=== PATIENT | male | born 1960 | race Caucasian/White ===

== ENCOUNTER → 2020-01-10 | Outpatient (CLI) | payer OTHER | END | disposition home or self-care (01) | LOC: LAB 07:40 → LAB SHORT 07:40 | DX: R19.7 Diarrhea, unspecified (principal) | CPT/HCPCS: 87177; 87209 ==

== ENCOUNTER → 2022-07-21 | Outpatient (CLI) | payer OTHER ==
[2022-07-21 19:05] LABS: Alanine Aminotransfer (ALT/SGP 47 U/L (12-78); Albumin, Blood 3.8 g/dL (3.4-5.0); Albumin/Globulin Ratio 1.2 (0.8-1.8); Alk Phos 65 U/L (50-136); Anion Gap 5 mmol/L (6-16); Aspartate Aminotrans (AST/SGOT 39 U/L (12-37); Bilirubin, Total 0.4 mg/dL (0.1-1.0); Blood Urea Nitrogen 13 mg/dL (8-24); Bun/Creatinine Ratio 20.2 (12.0-20.0); CHOL/HDL RATIO 3.5; CO2, Blood 27 mmol/L (21-32); Calcium, Blood 9.3 mg/dL (8.5-10.1); Chloride, Blood 106 mmol/L (98-108); Cholesterol 201 mg/dL (50-200); Creatinine, Blood 0.64 mg/dL (0.60-1.20); Globulin, Blood 3.2 g/dL (2.2-4.0); Glomerular Filtration Rate 109 (60-); Glucose, Blood 126 mg/dL (70-99); HDL Cholesterol 58 mg/dL (>39); Low Density Lipoprotein Chol 116 mg/dL (0-110); Potassium, Blood 4.4 mmol/L (3.5-5.5); Sodium, Blood 138 mmol/L (136-145); Triglycerides 134 mg/dL (30-160); Very Low Density Lipoprot Chol 26 mg/dL (6-32)
== END | disposition home or self-care (01) ==
LOC: LAB SHORT 17:15 → LAB 17:15
PROVIDERS: Family Medicine
DX: E11.9 Type 2 diabetes mellitus without complications (principal)
CPT/HCPCS: 80053; 80061

== ENCOUNTER 2024-11-23 19:31 | Emergency (ER) | payer OTHER ==
[~2024-11-23] VITALS: Ht 177.8 cm; Wt 163.3 kg
[2024-11-23] MEDS ORDERED: Lactated Ringer's 1,000 ML IV ONE (19:40)
[2024-11-23] MEDS ORDERED: NS 1,000 ML IV SCH ×2 (19:40→21:30)
[2024-11-23 19:48] LABS: BASOPHILS ABSOLUTE AUTO 0.03 K/mm3 (0.00-0.23); BASOPHILS PERCENT AUTO 0 % (0-2); EOSINOPHILS ABSOLUTE AUTO 0.01 K/mm3 (0.00-0.68); EOSINOPHILS PERCENT AUTO 0 % (0-6); Hematocrit 38.5 % (37.0-53.0); Hemoglobin 13.4 g/dL (13.5-17.5); IMMATURE GRAN ABSOLUTE AUTO 0.05 K/mm3 (0.00-0.10); IMMATURE GRAN PERCENT AUTO 1 % (0-1); LYMPHOCYTES ABSOLUTE AUTO 0.52 K/mm3 (0.84-5.20); LYMPHOCYTES PERCENT AUTO 6 % (21-46); MONOCYTES ABSOLUTE AUTO 0.56 K/mm3 (0.16-1.47); MONOCYTES PERCENT AUTO 6 % (4-13); Mean Corpuscular HGB 28.9 pg (26.0-34.0); Mean Corpuscular HGB Conc 34.8 g/dL (31.5-36.5); Mean Corpuscular Volume 83 fL (80-100); Mean Platelet Volume 8.6 fL (9.1-12.4); NEUTROPHILS ABSOLUTE AUTO 7.96 K/mm3 (1.96-9.15); NEUTROPHILS PERCENT AUTO 87 % (41-73); Platelet Count 225 K/mm3 (150-400); RDW Coefficient Variation 13.9 % (11.7-14.2); RDW Standard Deviation 42.2 fL (35.1-46.3); Red Blood Cell Count 4.63 M/mm3 (4.30-5.90); White Blood Cell Count 9.13 K/mm3 (4.00-11.30)
[2024-11-23 19:51] LABS: Base Excess Venous 0.3 mmol/L; Bicarbonate Venous 25.4 mmol/L (24.0-30.0); PCO2 Venous 30.5 mmHg (38-42)
[2024-11-23 20:12] LABS: Magnesium, Blood 1.8 mg/dL (1.6-2.4)
[2024-11-23] MEDS ORDERED: Ketorolac Tromethamine 30mg Vial IV ONE (20:15)
[2024-11-23 20:20] LABS: Albumin, Blood 3.6 g/dL (3.4-5.0); Albumin/Globulin Ratio 1.1 (0.8-1.8); Beta-hydroxybutyrate 2.1 mg/dL (0.2-2.8); Bilirubin, Total 0.3 mg/dL (0.1-1.0); Bun/Creatinine Ratio 19.5 (12.0-20.0); Calcium, Blood 9.2 mg/dL (8.5-10.1); Creatinine, Blood 0.82 mg/dL (0.60-1.20); Globulin, Blood 3.3 g/dL (2.2-4.0); Potassium, Blood 3.8 mmol/L (3.5-5.5); Total Protein, Blood 6.9 g/dL (6.4-8.2)
[2024-11-23 20:29] LABS: Influenza A, PCR NEGATIVE (NEGATIVE); Influenza B, PCR NEGATIVE (NEGATIVE); Resp Syncytial Virus, PCR NEGATIVE (NEGATIVE); SARS-Cov-2 (COVID-19) PCR, MMC NEGATIVE (NEGATIVE)
[2024-11-23] MEDS ORDERED: Metoprolol Tartrate 1 MG/ML 5 ML VIAL IV ONE (21:20)
[2024-11-23] MEDS ORDERED: Insulin Regular 100 Unit/ML 1ML Dose IV ONE ×2 (21:30→23:00)
[2024-11-23] MEDS ORDERED: HYDROmorphone HCl/Pf 1MG SYR IV ONE (21:35)
[2024-11-23 22:07] LABS: Source, Urine Clean Catch
[2024-11-23 22:09] LABS: Bilirubin, Urine Neg (Neg); Blood, Urine Neg (Neg); Glucose Qualitative, Urine 3+ (Neg); Ketones, Urine 1+ (Neg); Leukocyte Esterase, Urine Neg (Neg); Nitrite, Urine Neg (Neg); Protein, Urine 2+ (Neg); Specific Gravity, Urine 1.015 (1.003-1.022); Urobilinogen, Urine NORM (Normal)
[2024-11-23] MEDS ORDERED: Acetaminophen 500 MG Tab PO ONE (22:10)
[2024-11-23 22:18] LABS: Appearance, Urine Clear (Clear); Color, Urine Yellow (P-Yellow)
[2024-11-23 22:19] LABS: Bacteria Few /hpf; Red Blood Cells, Urine 0-2 /hpf (0-2); Squamous Epithelial Cells Few /hpf (Few); White Blood Cells, Urine 0-2 /hpf (0-5)
[2024-11-23 23:31] VITALS: BP 113/63
== END 2024-11-23 23:31 | disposition home or self-care (01) ==
LOC: ER 19:31
PROVIDERS: Student in an Organized Health Care Education/Training Program
DX: E11.65 Type 2 diabetes mellitus with hyperglycemia (principal); E86.0 Dehydration; B34.9 Viral infection, unspecified; I10 Essential (primary) hypertension; Z88.5 Allergy status to narcotic agent; Z88.8 Allergy status to other drugs, medicaments and biological substances
CPT/HCPCS: 0241U; 71045; 80053; 81001; 82010; 82803; 82947; 83735; 83880; 84484; 85025; 93005; 93010; 96361; 96374; 96375; 99285-25; A9270; J1171; J1815; J1885; J7030

== ENCOUNTER 2025-02-05 14:55 | Emergency (ER) | payer OTHER ==
[~2025-02-05] VITALS: Ht 180.3 cm; Wt 124.7 kg
--- NOTE | 2025-02-05 15:27 | NUR ---
Pt. is awake in ED15 when this second helper comes to bedside. Pts. nurses completed his intake and stepped out. Pt. is known to this second helper from the community. Facilitate a review of the Pts. history leading to his coming to the ED. Listen with empathy and a calming presence. Pt. displays evidence of labored memory, and at times verbalized his frustration over it. Prayed with the Pt. Pt. displays evidence of having been comforted and verbalized gratitude for the spiritual care visit. This second helper got permiission to bring the Pts. spouse to bedside. Will remain available to the Pt. and spouse.
[2025-02-05 15:52] LABS: BASOPHILS ABSOLUTE AUTO 0.01 K/mm3 (0.00-0.23); BASOPHILS PERCENT AUTO 0 % (0-2); EOSINOPHILS ABSOLUTE AUTO 0.01 K/mm3 (0.00-0.68); EOSINOPHILS PERCENT AUTO 0 % (0-6); Hematocrit 36.2 % (37.0-53.0); Hemoglobin 12.3 g/dL (13.5-17.5); IMMATURE GRAN ABSOLUTE AUTO 0.05 K/mm3 (0.00-0.10); IMMATURE GRAN PERCENT AUTO 1 % (0-1); LYMPHOCYTES ABSOLUTE AUTO 0.77 K/mm3 (0.84-5.20); LYMPHOCYTES PERCENT AUTO 8 % (21-46); MONOCYTES ABSOLUTE AUTO 0.86 K/mm3 (0.16-1.47); MONOCYTES PERCENT AUTO 9 % (4-13); Mean Corpuscular Volume 79 fL (80-100); Mean Platelet Volume 8.3 fL (9.1-12.4); NEUTROPHILS PERCENT AUTO 82 % (41-73); Platelet Count 264 K/mm3 (150-400); RDW Coefficient Variation 13.7 % (11.7-14.2); RDW Standard Deviation 39.2 fL (35.1-46.3); Red Blood Cell Count 4.56 M/mm3 (4.30-5.90)
[2025-02-05] MEDS ORDERED: Acetaminophen 500 MG Tab PO ONE (16:05)
[2025-02-05 16:09] LABS: Albumin, Blood 3.2 g/dL (3.4-5.0); Albumin/Globulin Ratio 0.7 (0.8-1.8); Bilirubin, Total 0.6 mg/dL (0.1-1.0); Bun/Creatinine Ratio 20.8 (12.0-20.0); Creatinine, Blood 0.77 mg/dL (0.60-1.20); Globulin, Blood 4.4 g/dL (2.2-4.0); Potassium, Blood 3.8 mmol/L (3.5-5.5); Total Protein, Blood 7.6 g/dL (6.4-8.2)
[2025-02-05 16:47] LABS: Source, Urine Clean Catch
[2025-02-05] MEDS ORDERED: Lactated Ringer's 1,000 ML IV ONE (17:25)
[2025-02-05] MEDS ORDERED: CefTRIAXone Sodium 2,000 MG in NS 100 ML IV ONE (17:30)
[2025-02-05 17:36] LABS: Influenza A, PCR NEGATIVE (NEGATIVE); Influenza B, PCR NEGATIVE (NEGATIVE); Resp Syncytial Virus, PCR NEGATIVE (NEGATIVE); SARS-Cov-2 (COVID-19) PCR, MMC NEGATIVE (NEGATIVE)
--- NOTE | 2025-02-05 18:26 | NUR ---
Spiritual Care Follow Up Pt. isstill in ED15 and displays evidence of discomfort. Pt. verbalized that he still ahs a fever. Spouse is at bedside. Both verbalized gratitude for the spiritual care check in. WIll remain available to the family should the Pt. be admitted.
[2025-02-05 18:37] LABS: Bilirubin, Urine Neg (Neg); Blood, Urine 3+ (Neg); Color, Urine Yellow (P-Yellow); Glucose Qualitative, Urine Neg (Neg); Ketones, Urine Neg (Neg); Leukocyte Esterase, Urine 2+ (Neg); Nitrite, Urine Neg (Neg); Protein, Urine 3+ (Neg); Specific Gravity, Urine 1.015 (1.003-1.022); Urobilinogen, Urine NORM (Normal)
[2025-02-05] MEDS ORDERED: Gabapentin 300 MG Cap PO ONE (18:45)
[2025-02-05] MEDS ORDERED: Gabapentin 400 MG Cap PO ONE (19:15)
[2025-02-05 19:26] LABS: Appearance, Urine Hazy (Clear)
[2025-02-05 19:27] LABS: Bacteria Mod /hpf; Mucus Light (0-Heavy); Squamous Epithelial Cells Rare /hpf (Few)
[2025-02-05] MEDS ORDERED: CEFD300 PO (19:33)
[2025-02-05 19:46] VITALS: BP 158/77
== END 2025-02-05 19:46 | disposition home or self-care (01) ==
LOC: ER 14:55
PROVIDERS: Student in an Organized Health Care Education/Training Program
DX: N39.0 Urinary tract infection, site not specified (principal); R41.0 Disorientation, unspecified; I10 Essential (primary) hypertension; E11.9 Type 2 diabetes mellitus without complications; M10.9 Gout, unspecified; Z88.8 Allergy status to other drugs, medicaments and biological substances; Z88.5 Allergy status to narcotic agent; Z59.89 Other problems related to housing and economic circumstances
CPT/HCPCS: 0241U; 36415; 80053; 81001; 83605; 85025; 87040; 87077; 87086; 87186; 93005; 93010; 96365; 99285-25; A9270; J0696; J7120

== ENCOUNTER 2025-02-10 14:39 | Emergency (ER) | payer OTHER ==
[~2025-02-10] VITALS: Ht 177.8 cm; Wt 149.7 kg
[~2025-02-10 14:39] MED LIST: CEFD300 PO
[2025-02-10] MEDS ORDERED: CefTRIAXone Sodium 1,000 MG in NS 50 ML IV ONE (15:00)
[2025-02-10 15:31] LABS: BASOPHILS ABSOLUTE AUTO 0.03 K/mm3 (0.00-0.23); BASOPHILS PERCENT AUTO 1 % (0-2); EOSINOPHILS PERCENT AUTO 2 % (0-6); Hematocrit 34.2 % (37.0-53.0); Hemoglobin 11.1 g/dL (13.5-17.5); IMMATURE GRAN ABSOLUTE AUTO 0.07 K/mm3 (0.00-0.10); IMMATURE GRAN PERCENT AUTO 1 % (0-1); LYMPHOCYTES ABSOLUTE AUTO 0.88 K/mm3 (0.84-5.20); LYMPHOCYTES PERCENT AUTO 16 % (21-46); MONOCYTES ABSOLUTE AUTO 0.36 K/mm3 (0.16-1.47); MONOCYTES PERCENT AUTO 7 % (4-13); Mean Corpuscular HGB 26.4 pg (26.0-34.0); Mean Corpuscular HGB Conc 32.5 g/dL (31.5-36.5); Mean Corpuscular Volume 81 fL (80-100); Mean Platelet Volume 8.6 fL (9.1-12.4); NEUTROPHILS ABSOLUTE AUTO 4.02 K/mm3 (1.96-9.15); NEUTROPHILS PERCENT AUTO 74 % (41-73); Platelet Count 304 K/mm3 (150-400); RDW Coefficient Variation 13.7 % (11.7-14.2); RDW Standard Deviation 40.3 fL (35.1-46.3); White Blood Cell Count 5.46 K/mm3 (4.00-11.30)
[2025-02-10 15:52] LABS: Albumin, Blood 2.7 g/dL (3.4-5.0); Albumin/Globulin Ratio 0.6 (0.8-1.8); Bilirubin, Total 0.3 mg/dL (0.1-1.0); Bun/Creatinine Ratio 29.4 (12.0-20.0); Calcium, Blood 9.3 mg/dL (8.5-10.1); Creatinine, Blood 0.61 mg/dL (0.60-1.20); Globulin, Blood 4.2 g/dL (2.2-4.0); Potassium, Blood 3.8 mmol/L (3.5-5.5); Total Protein, Blood 6.9 g/dL (6.4-8.2)
[2025-02-10 16:28] LABS: Source, Urine Voided
[2025-02-10 16:30] LABS: Appearance, Urine Clear (Clear); Bilirubin, Urine Neg (Neg); Blood, Urine 1+ (Neg); Color, Urine Yellow (P-Yellow); Glucose Qualitative, Urine Neg (Neg); Ketones, Urine Neg (Neg); Leukocyte Esterase, Urine 1+ (Neg); Nitrite, Urine Neg (Neg); Protein, Urine 1+ (Neg); Urobilinogen, Urine NORM (Normal)
[2025-02-10 16:56] LABS: Bacteria Many /hpf; Squamous Epithelial Cells Rare /hpf (Few)
[2025-02-10] MEDS ORDERED: CefTRIAXone Sodium 1,000 MG in NS 100 ML IV ONE (18:50)
[2025-02-10 19:09] VITALS: BP 137/74
[2025-02-10] MEDS ORDERED: CEFD300 PO (19:28)
[2025-02-10] MEDS ORDERED: Flomax0.4 MG PO (19:28)
== END 2025-02-10 19:30 | disposition home or self-care (01) ==
LOC: ER 14:39
PROVIDERS: Emergency Medicine
DX: N13.6 Pyonephrosis (principal); I10 Essential (primary) hypertension; E11.9 Type 2 diabetes mellitus without complications; K76.0 Fatty (change of) liver, not elsewhere classified; Z88.5 Allergy status to narcotic agent; Z88.8 Allergy status to other drugs, medicaments and biological substances
CPT/HCPCS: 74177; 80053; 81001; 83690; 85025; 87086; 93005; 93010; 96365; 99283-25; J0696; Q9967

== ENCOUNTER → 2025-09-01 | Outpatient (CLI) | payer OTHER ==
[~2025-09-01] MED LIST changes: +Flomax0.4 MG PO
[2025-09-01 09:12] LABS: Source, Urine Clean Catch
[2025-09-01 14:39] LABS: Bilirubin, Urine Neg (Neg); Color, Urine Yellow (P-Yellow); Glucose Qualitative, Urine Neg (Neg); Ketones, Urine Neg (Neg); Leukocyte Esterase, Urine 2+ (Neg); Protein, Urine 2+ (Neg); Specific Gravity, Urine 1.025 (1.003-1.022); Urobilinogen, Urine NORM (Normal)
[2025-09-01 16:04] LABS: Red Blood Cells, Urine TNTC /hpf (0-2)
[2025-09-01 17:29] LABS: Creatinine, Urine Random 79.4 mg/dL (27.00-270.00); Microalbumin, Random Urine 51.7 mg/L (0.000-20.000)
== END ==
LOC: LAB 09:11 → LAB SHORT 09:11
PROVIDERS: Hospitalist
DX: E11.9 Type 2 diabetes mellitus without complications (principal)
CPT/HCPCS: 81001; 82043; 82570; 87077; 87086; 87186